=== PATIENT | female | born 1955 | race Caucasian/White ===

== ENCOUNTER 2020-03-16 23:35 | Emergency (ER) | payer MEDICARE, SELFPAY ==
[2020-03-16 23:44] VITALS: BP 159/95; PULSE 92; RESP 18; TEMP 36.4; O2SAT 98
[2020-03-16 23:52] VITALS: BP 117/92
--- NOTE | 2020-03-16 23:55 | ED.GENADULT ---
HPI - General Adult General Chief complaint: Skin/Abscess/Foreign Body Stated complaint: Possible insect bite Source: patient Mode of arrival: ambulatory Limitations: no limitations History of Present Illness HPI narrative: patient presents with some lesions on her face and on her arms with central punctate areas with no drainage they are itchy with no fever chills no shortness of breath no nausea vomiting or abdominal pain. Onset (ago): day(s) Location: face Radiation: non-radiation Severity: mild Pain Consistency: constant Relieving factors: none Exacerbating factors: none Associated symptoms: denies other symptoms Related Data Home Medications Medication Instructions Recorded Confirmed gabapentin 300 mg PO BID 03/16/20 03/16/20 Allergies Allergy/AdvReac Type Severity Reaction Status Date / Time prochlorperazine Allergy Intermediate Nervousness Verified 06/15/19 18:31 Review of Systems Review of Systems: All systems reviewed & are unremarkable except as noted in HPI and below PMFSH Past Medical History Medical History Chronic back pain Social History Social History Smoking status: Never smoker Alcohol intake: never Substance use: never Gender identity (if verbalized by the patient): Female Exam Const: General: no acute distress Orientation/consciousness: patient oriented x3 HENMT: Head: normal to inspection Eyes: Conjunctivae: conjunctivae normal Pupils: Equal, round and reactive pupils present Neck: Neck: normal visual inspection and no lymphadenopathy Chest: Chest palpation & inspection: normal inspection of the chest Resp: Effort & Inspection: normal respiratory effort Auscultation: clear to auscultation bilaterally Cardio: Rate: regular rate Rhythm: regular rhythm GI: GI Palp: Yes Soft to palpation : General: Yes no CVA tenderness Back/Spine/Pelvis: Back: no CVA tenderness Skin: Other: lesions located on her face and arms with central punctate areas that are itchy with no drainage Course Course Emergency Course: patient received 80 mg IM Depo-Medrol, and 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 and follow-up with primary care physician Vital Signs Vital signs: Vital Signs Temperature 36.4 C L 03/16/20 23:44 Pulse Rate 92 03/16/20 23:44 Respiratory Rate 18 03/16/20 23:44 Blood Pressure 159/95 H 03/16/20 23:44 Pulse Oximetry 98 03/16/20 23:44 Temperature 36.4 C L 03/16/20 23:44 Pulse Rate 92 03/16/20 23:44 Respiratory Rate 18 03/16/20 23:44 Blood Pressure 117/92 H 03/16/20 23:52 Pulse Oximetry 98 03/16/20 23:44 Medical Decision Making Vital Signs Vital Signs: Vital Signs Temperature 36.4 C L 03/16/20 23:44 Pulse Rate 92 03/16/20 23:44 Respiratory Rate 18 03/16/20 23:44 Blood Pressure 159/95 H 03/16/20 23:44 Pulse Oximetry 98 03/16/20 23:44 Temperature 36.4 C L 03/16/20 23:44 Pulse Rate 92 03/16/20 23:44 Respiratory Rate 18 03/16/20 23:44 Blood Pressure 117/92 H 03/16/20 23:52 Pulse Oximetry 98 03/16/20 23:44 Critical Care Time Critical Care Time Critical Care Time: No Discharge Plan Discharge Clinical Impression: Insect bites Patient Disposition: Home, Self-Care Condition: Stable Instructions: Antibiotic Form, Insect Bite or Sting (ED) Additional Instructions: take medicine as prescribed and follow-up with primary care physician if symptoms persist or worsen. Prescriptions: New methylprednisolone [Medrol (Fabian)] 4 mg tablets,dose pack See Rx Instructions .ROUTE .COMPLEX Qty: 21 RF: 0 azithromycin [Zithromax Z-Fabian] 250 mg tablet See Rx Instructions .ROUTE .COMPLEX Qty: 6 RF: 0 No Action gabapentin 300 mg Capsule 300 mg PO BID RF: 0 Follow-up/Referrals: Jadon,CARLEE Lamar [Primary Care Provider] - Time of Disposition
[2020-03-16] MEDS: methylPREDNISolone ACETATE 40 MG/ML VIAL 80 MG IM (23:58)
== END 2020-03-17 00:01 | disposition home or self-care (01) ==
PROVIDERS: Emergency Provider Emergency Medicine; PCP Physician Assistant
DX: T14.8XXA Other injury of unspecified body region, initial encounter (principal); W57.XXXA Bitten or stung by nonvenomous insect and other nonvenomous arthropods, initial encounter
CPT/HCPCS: 96372; 99283; J1030

== ENCOUNTER 2020-09-22 13:34 | Outpatient (CLI) | payer MEDICARE, SELFPAY ==
--- NOTE | ~2020-09-22 | US_ITS ---
EXAMINATION: US soft tissue UE LT DATE: 09/22/2020 15:34 INDICATION: Mass at the proximal left upper arm. TECHNIQUE: Multiple grayscale and Doppler ultrasound images of the region of concern at the proximal left upper arm near the axilla were obtained. COMPARISON: None FINDINGS: Normal appearance to the subcutaneous fat, musculature and vasculature at the region of concern. No p athologically enlarged lymphadenopathy, abnormal masses or fluid collections identified. IMPRESSION: No correlate identified for the palpable abnormality of concern. Specifically no lymphadenopathy othe r abnormal masses or fluid collections identified at the region of concern. Reviewed, dictated and finalized at location B. ER MACHINE IMPRESSION: No correlate identified for the palpable abnormality of concern. Specifically n o lymphadenopathy other abnormal masses or fluid collections identified at the region of concern.
== END 2020-09-22 13:35 | disposition home or self-care (01) ==
PROVIDERS: PCP Physician Assistant; Visit Provider Physician Assistant
DX: R22.32 Localized swelling, mass and lump, left upper limb (principal)
CPT/HCPCS: 76882